=== PATIENT | male | born 1970 | race Caucasian/White ===

== ENCOUNTER 2019-02-07 12:47 | Emergency (ER) | payer SELFPAY ==
[~2019-02-07] VITALS: Ht 165.1 cm; Wt 113.4 kg
--- NOTE | 2019-02-07 12:52 | NUR ---
Patient ambulated to bed 3. RN evaluating patient at bedside.
[2019-02-07 12:55] VITALS: BP 211/120
--- NOTE | 2019-02-07 13:00 | NUR ---
48 Y/O MALE W C/O R HIP PAIN RADIATING DOWN R LEG X4 DAYS 04/23 & SHARP. 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 NO OBVIOUS DEFORMITY, REDNESS, OR SWELLING NOTED. PT IS AMBULATORY WITH A STEADY GATE. UPON ASSESSMENT, PT BP WAS NOTED TO BE ELEVATED AT 211/110. PT IS IN NSR, SPO2 98% RA, DENIES CP, SOB, DIZZINESS, HEADACHE AND HX OF HTN. 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 PT ALERT AND ANSWERING QUESTIONSS APPROPRIATELY, SPEAKING IN COMPLETE SENTENCES. BED IN LOW POSITION, SIDE RAIL UP X1.
--- NOTE | 2019-02-07 13:05 | NUR ---
BP 211/120, DR. SIMMS AWARE AND WILL GO SEE PT.
--- NOTE | 2019-02-07 13:09 | NUR ---
PT GIVEN UA CUP, URINE COLLECTED AND SENT TO LAB.
--- NOTE | 2019-02-07 13:15 | NUR ---
DR. SIMMS AT BEDSIDE ASSESSING PT
[2019-02-07] MEDS ORDERED: hydrALAZINE 20 MG/ML VIAL IVP ONE (13:25)
[2019-02-07] MEDS ORDERED: MORPHINE SULFATE 4 MG/ML SYR IVP ONE (13:25)
[2019-02-07] MEDS ORDERED: ENALAPRILAT 2.5 MG/2 ML VIAL IVP ONE (13:25)
[2019-02-07 14:48] VITALS: BP 135/76
--- NOTE | 2019-02-07 14:50 | NUR ---
Patient discharged with v/s stable. Written and verbal after care instructions given and explained. Patient alert, oriented and verbalized understanding of instructions. Ambulatory with steady gait. All questions addressed prior to discharge. ID band removed. Patient advised to follow up with PMD. Rx of NAPROSYN & LISINOPRIL given. Patient educated on indication of medication including possible reaction and side effects. Opportunity to ask questions provided and answered.
== END 2019-02-07 14:50 | disposition home or self-care (01) ==
LOC: MED 12:47
DX: M25.551 Pain in right hip (principal); I10 Essential (primary) hypertension; W18.39XA Other fall on same level, initial encounter; Y93.89 Activity, other specified; Y92.69 Other specified industrial and construction area as the place of occurrence of the external cause; Y99.0 Civilian activity done for income or pay
CPT/HCPCS: 73502; 96374; 96375; 99283; J0360; J2270; J3490